=== PATIENT | male | born 1965 | race Caucasian/White ===

== ENCOUNTER 2017-04-07 13:16 | Emergency (ER) | payer MEDICAID ==
[2017-04-07 13:28] VITALS: PULSE 58; RESP 18; TEMP 98.6; BMI 22.4
--- NOTE | 2017-04-07 13:52 | ED PDOC ---
Arrival/HPI - General Chief Complaint: Medical Clearance Time Seen by Provider: 04/07/17 13:30 Historian: Family - History of Present Illness Narrative History of Present Illness (Text): 04/07/17 13:56 A 51 year old male, whose past medical history includes fatty liver disease, was sent by clinic to the emergency department for abnormal EKG. Patient's son reports patient went to clinic for a check up, last saw PMD a year ago in [facility]. Denies any pain or complaints at this time. Time/Duration: Prior to Arrival Symptom Onset: Sudden Context: Other (clinic) Associated Symptoms (Text): none Past Medical History - Provider Review Nursing Documentation Reviewed: Yes - Cardiac Hx Cardiac Disorders: No - Pulmonary Hx Respiratory Disorders: No - Neurological Hx Neurological Disorder: No - HEENT Hx HEENT Disorder: No - Endocrine/Metabolic Hx Endocrine Disorders: No - Hematological/Oncological Hx Blood Disorders: No - Integumentary Hx Dermatological Disorder: No - Musculoskeletal/Rheumatological Hx Musculoskeletal Disorders: No - Gastrointestinal Hx Fatty Liver Disease: Yes - Genitourinary/Gynecological Hx Genitourinary Disorders: No - Psychiatric Hx Psychophysiologic Disorder: No Hx Substance Use: No Family/Social History - Physician Review Nursing Documentation Reviewed: Yes Family/Social History: No Known Family HX Smoking Status: Never Smoked Hx Alcohol Use: No Hx Substance Use: No Allergies/Home Meds Allergies/Adverse Reactions: Allergies No Known Allergies Allergy (Verified 04/07/17 13:27) Home Medications: Home Meds Medication Instructions Recorded Confirmed Tenofovir [Viread] 300 mg PO DAILY 04/07/17 04/07/17 Review of Systems - Physician Review All systems were reviewed & negative as marked: Yes - Review of Systems Cardiovascular: absent: Chest Pain Gastrointestinal: absent: Abdominal Pain Physical Exam Vital Signs Reviewed: Yes Vital Signs Temp Pulse Resp BP Pulse Ox 04/07/17 15:52 58 L 18 142/86 98 04/07/17 13:23 98.6 F 58 L 18 143/80 97 Temperature: Afebrile Blood Pressure: Normal Pulse: Regular Respiratory Rate: Normal Appearance: Positive for: Well-Appearing, Non-Toxic, Comfortable Pain Distress: None Mental Status: Positive for: Alert and Oriented X 3 - Systems Exam Head: Present: Atraumatic, Normocephalic Pupils: Present: PERRL Extroacular Muscles: Present: EOMI Conjunctiva: Present: Normal Mouth: Present: Moist Mucous Membranes Neck: Present: Normal Range of Motion Respiratory/Chest: Present: Clear to Auscultation, Good Air Exchange. No: Respiratory Distress, Accessory Muscle Use Cardiovascular: Present: Regular Rate and Rhythm, Normal S1, S2. No: Murmurs Abdomen: Present: Normal Bowel Sounds. No: Tenderness, Distention, Peritoneal Signs Back: Present: Normal Inspection Upper Extremity: Present: Normal Inspection. No: Cyanosis, Edema Lower Extremity: Present: Normal Inspection. No: Edema Neurological: Present: GCS=15, CN II-XII Intact, Speech Normal Skin: Present: Warm, Dry, Normal Color. No: Rashes Psychiatric: Present: Alert, Oriented x 3, Normal Insight, Normal Concentration Medical Decision Making ED Course and Treatment: 04/07/17 13:49 Impression: A 51 year old male sent by clinic for abnormal EKG. Plan: -- EKG -- chest xray -- labs -- Reassess and disposition Progress Notes: EKG: Ordered, reviewed, and independently interpreted the EKG. Rate : 59 BPM Rhythm : Sinus bradycardic Interpretation : ST depressions, lateral and inferior leads Comparison : No change from EKG done at clinic 04/07/17 14:33 Chest xray: Creator : Don Austin MD IMPRESSION: No active disease. 3:10pm: Patient told of normal blood work and CXR. Patient continues to deny any pain at any time. Will be discharged and will follow up with PMD for cardiology referral. Patient understood plan. - Lab Interpretations Lab Results: 04/07/17 14:12 04/07/17 14:30 Lab Results 04/07/17 14:30: Sodium 139, Potassium 3.9, Chloride 106, Carbon Dioxide 25, Anion Gap 12, BUN 18, Creatinine 0.7, Est GFR ( Amer) > 60, Est GFR (Non- Af Amer) > 60, Random Glucose 84, Calcium 9.1, Magnesium 2.1, Total Bilirubin 0.4, AST 31, ALT 34, Alkaline Phosphatase 58, Lactate Dehydrogenase 424, Total Creatine Kinase 97, Troponin I < 0.01, Total Protein 7.7, Albumin 4.0, Globulin 3.7, Albumin/Globulin Ratio 1.1 04/07/17 14:12: WBC 5.2, RBC 4.62, Hgb 13.9 L, Hct 40.3 L, MCV 87.2, MCH 30.1, MCHC 34.5, RDW 12.6, Plt Count 243, MPV 9.8, Gran % 55.8, Lymph % (Auto) 35.8 H , [place] % (Auto) 5.9, Eos % (Auto) 2.1, Baso % (Auto) 0.4, Gran # 2.91, Lymph # 1.9, [place] # 0.3, Eos # 0.1, Baso # 0.02 I have reviewed the lab results: Yes - RAD Interpretation Radiology Orders: 04/07/17 13:36 CHEST PORTABLE [RAD] Stat - EKG Interpretation Interpreted by ED Physician: Yes Type: 12 lead EKG - Scribe Statement The provider has reviewed the documentation as recorded by the Valeria Ray Provider Scribe Attestation: All medical record entries made by the Scribe were at my direction and personally dictated by me. I have reviewed the chart and agree that the record accurately reflects my personal performance of the history, physical exam, medical decision making, and the department course for this patient. I have also personally directed, reviewed, and agree with the discharge instructions and disposition. Disposition/Present on Arrival - Present on Arrival Any Indicators Present on Arrival: No History of DVT/PE: No History of Uncontrolled Diabetes: No Urinary Catheter: No History of Decub. Ulcer: No History Surgical Site Infection Following: None - Disposition Have Diagnosis and Disposition been Completed?: Yes Diagnosis: Abnormal finding on EKG Disposition: HOME/ ROUTINE Disposition Time: 15:15 Condition: GOOD Discharge Instructions (ExitCare): Chest Pain (ED) Additional Instructions: Thank you for letting us take care of you today. Your provider was Dr. Heaton. The emergency medical care you received today was directed at your acute symptoms. If you were prescribed any medication, please fill it and take as directed. It may take several days for your symptoms to resolve. Return to the Emergency Department if your symptoms worsen, do not improve, or if you have any other problems. Please contact your doctor or call one of the physicians/clinics you have been referred to that are listed on the Patient Visit Information form that is included in your discharge packet. Bring any paperwork you were given at discharge with you along with any medications you are taking to your follow up visit. Our treatment cannot replace ongoing medical care by a primary care provider (PCP) outside of the emergency department. Thank you for allowing the [facility] team to be part of your care today. Follow up with your primary doctor in 2-3 days for further management. 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 Referrals: Abner Richard MD [Primary Care Provider] - Follow up with primary
[2017-04-07 14:16] LABS: BASO # 0.02 K/mm3 (0.0-2.0); BASO % 0.4 % (0.0-3.0); EOS # 0.1 (0.0-0.7); EOS % 2.1 % (1.5-5.0); GRAN # 2.91 (1.4-6.5); GRAN % 55.8 % (50.0-68.0); HEMOGLOBIN 13.9 gm/dL (14.0-18.0); LYMPH # 1.9 (1.2-3.4); LYMPH % 35.8 % (22.0-35.0); MEAN CELL VOLUME 87.2 fL (80.0-105.0); MEAN CORPUSCULAR HEMOGLOBIN 30.1 pg (25.0-35.0); MEAN CORPUSCULAR HGB CONC 34.5 g/dl (31.0-37.0); MEAN PLATELET VOLUME 9.8 fl (7.0-11.0); MONO # 0.3 (0.1-0.6); MONO % 5.9 % (1.0-6.0); PLATELET COUNT 243 10^3/uL (120.0-450.0); RBC 4.62 10^6/uL (3.5-6.1); RED CELL DISTRIBUTION WIDTH 12.6 % (11.5-14.5); WHITE BLOOD COUNT 5.2 10^3/ul (4.5-11.0)
--- NOTE | 2017-04-07 14:30 | RAD ---
HISTORY: r/o infiltrate COMPARISON: No prior. FINDINGS: LUNGS: No active pulmonary disease. PLEURA: No significant pleural effusion identified, no pneumothorax apparent. CARDIOVASCULAR: Normal. OSSEOUS STRUCTURES: No significant abnormalities. VISUALIZED UPPER ABDOMEN: Normal. OTHER FINDINGS: None. IMPRESSION: No active disease.
[2017-04-07 14:58] LABS: ALB/GLOB RATIO 1.1 (1.1-1.8); ALT/SGPT 34 U/L (7-56); AST/SGOT 31 U/L (15-59); BLOOD UREA NITROGEN 18 mg/dL (7-21); CALCIUM 9.1 mg/dL (8.4-10.5); GFR AFRICAN-AMERICAN > 60; GFR NON-AFRICAN AMERICAN > 60; MAGNESIUM 2.1 mg/dL (1.7-2.2)
[2017-04-07 15:11] LABS: TROPONIN I < 0.01 ng/mL
[2017-04-07 15:55] VITALS: BP 142/86; O2SAT 98
--- NOTE | 2017-04-08 17:19 | CARD ---
APPROVED REPORT EKG Measurement Heart [id number] <Conclusion> Sinus bradycardia Left ventricular hypertrophy with repolarization abnormality can not R/o Ischemia Abnormal ECG
== END 2017-04-07 15:55 | disposition home or self-care (01) ==
LOC: ED 13:16
DX: R94.31 Abnormal electrocardiogram [ECG] [EKG] (principal)